=== PATIENT | female | born 1985 | race American Indian/Alaskan Native ===

== ENCOUNTER 2019-03-13 04:06 | Emergency (ER) | payer SELFPAY ==
[2019-03-13] MEDS ORDERED: REGLAN PO ONE (04:38)
[2019-03-13] MEDS ORDERED: BENADRYL PO ONE (04:38)
[2019-03-13] MEDS ORDERED: NORVASC PO ONE (04:38)
[2019-03-13] MEDS ORDERED: FIORICET PO ONE (04:39)
--- NOTE | 2019-03-13 04:43 | Emergency Department Report ---
ED Headache HPI - General Chief Complaint: Headache Stated Complaint: HEADACHE Time Seen by Provider: 03/13/19 04:33 - History of Present Illness Initial Comments: Patient is a 33-year-old female presents to emergency room with complaints of a left frontal headache that began 4 days ago. She states she has mild photophobia. pt states she has had headaches like this before. she states it is related to her blood pressure. she denies any nausea, vomiting, fever, vision changes, numbness, weakness. The patient states she had hypertension during . States she was approximately a year and a half ago. The pa monse states that she has not had her blood pressure taken in "awhile." She states that after she was taking lisinopril but it was not working and they were going to change her to something else but she did not go back. She does not have a primary care doctor. States she is currently on her menstrual cycle. Allergies/Adverse Reactions: Allergies No Known Allergies Allergy (Unverified 03/13/19 04:29) Home Medications: Ambulatory Orders Butalb/Acetaminophen/Caffeine [Fioricet 50-300-40 mg CAP] 1 cap PO Q8HR PRN #14 cap 03/13/19 amLODIPine [Norvasc] 5 mg PO DAILY #30 tab 03/13/19 ED Review of Systems ROS: Stated complaint: HEADACHE Other details as noted in HPI Comment: All other systems reviewed and negative ED Past Medical Hx - Past Medical History Previous Medical History?: Yes Additional medical history: Pre-eclampsia - Surgical History Past Surgical History?: No - Social History Smoking Status: Never Smoker Substance Use Type: None - Medications Home Medications: Home Medications Medication Instructions Recorded Confirmed Last Taken Type Butalb/Acetaminophen/Caffeine 1 cap PO Q8HR PRN #14 cap 03/13/19 Unknown Rx [Fioricet 50-300-40 mg CAP] amLODIPine [Norvasc] 5 mg PO DAILY #30 tab 03/13/19 Unknown Rx ED Physical Exam - General Limitations: No Limitations General appearance: alert, in no apparent distress - Head Head exam: Present: atraumatic, normocephalic - Eye Eye exam: Present: normal appearance, PERRL, EOMI. Absent: nystagmus, periorbital swelling, periorbital tenderness - ENT ENT exam: Present: mucous membranes moist - Respiratory Respiratory exam: Present: normal lung sounds bilaterally. Absent: respiratory distress, wheezes, rales, rhonchi, stridor, chest wall tenderness, accessory muscle use, decreased breath sounds, prolonged expiratory - Cardiovascular Cardiovascular Exam: Present: regular rate, normal rhythm, normal heart sounds. Absent: systolic murmur, diastolic murmur, rubs, gallop - Neurological Exam Neurological exam: Present: alert, oriented X3, CN II-XII intact, normal gait. Absent: motor sensory deficit - Psychiatric Psychiatric exam: Present: normal affect, normal mood - Skin Skin exam: Present: warm, dry, intact ED Course Vital Signs 03/13/19 03/13/19 03/13/19 04:23 05:05 05:30 Temperature 97.7 F Pulse Rate 95 H 74 Respiratory 16 16 Rate Blood Pressure 167/113 Blood Pressure [Left] O2 Sat by Pulse 100 Oximetry 03/13/19 05:44 Temperature 98 F Pulse Rate 76 Respiratory 16 Rate Blood Pressure Blood Pressure 160/110 [Left] O2 Sat by Pulse 100 Oximetry ED Medical Decision Making - Medical Decision Making Patient is a 33-year-old female presents to emergency room with complaints of a left frontal headache that began 4 days ago. She states she has mild photophobia. pt states she has had headaches like this before. she states it is related to her blood pressure. she denies any nausea, vomiting, fever, vision changes, numbness, weakness. The patient states she had hypertension during . States she was approximately a year and a half ago. The patient states that she has not had her blood pressure taken in "awhile." She states that after she was taking lisinopril but it was not working and they were going to change her to something else but she did not go back. She does not have a primary care doctor. States she is currently on her menstrual cycle. pt given medications for her headache and 2.5 mg of amlodipine. pt states her headache significantly improved. pt given prescription for amlodipine 5 mg daily and fiorcet. advised pt to please take medication as prescribed. Keep a pressure log and take your blood pressure 3 times a day. Eat a low-sodium diet. Please follow up with a primary care doctor in the next 2-3 days. Given list of the community clinics. Return to the emergency room for any new or worsening symptoms or if symptoms are not improving. - Differential Diagnosis migraine, cluster FUENTES, tension FUENTES, hypertensive induced FUENTES Critical care attestation.: If time is entered above; I have spent that time in minutes in the direct care of this critically ill patient, excluding procedure time. ED Disposition Clinical Impression: Headache Qualifiers: Headache type: unspecified Headache chronicity pattern: acute headache Intractability: not intractable Qualified Code(s): R51 - Headache HTN (hypertension) Qualifiers: Hypertension type: unspecified Qualified Code(s): I10 - Essential (primary) hypertension Disposition: TO HOME OR SELFCARE Is pt being admited?: No Does the pt Need Aspirin: No Condition: Stable Instructions: Acute Headache (ED), Hypertension (ED) Additional Instructions: Please take medication as prescribed. Keep a pressure log and take your blood pressure 3 times a day. Eat a low-sodium diet. Please follow up with a primary care doctor in the next 2-3 days. Given list of the community clinics. Return to the emergency room for any new or worsening symptoms or if symptoms are not improving. Prescriptions: Butalb/Acetaminophen/Caffeine [Fioricet 50-300-40 mg CAP] 1 cap PO Q8HR PRN #14 cap PRN Reason: Headache amLODIPine [Norvasc] 5 mg PO DAILY #30 tab Referrals: KLAUS VALDES MD [Primary Care Provider] - 2-3 Days [facility] [Outside] - 2-3 Days [facility] [Outside] - 2-3 Days Time of Disposition: 05:47 Print Language: IRISH
[2019-03-13 05:45] VITALS: BP 160/110
== END 2019-03-13 05:55 | disposition home or self-care (01) ==
LOC: ED 04:06
DX: R51 Headache (principal); I10 Essential (primary) hypertension; Z79.899 Other long term (current) drug therapy
CPT/HCPCS: 99282